=== PATIENT | female | born 1995 | race Two or more races ===

== ENCOUNTER 2025-02-06 14:34 | Emergency (ER) | payer OTHER, SELFPAY ==
[2025-02-06 15:00] VITALS: BP 115/69; PULSE 75; RESP 14; O2SAT 99
[2025-02-06 15:38] VITALS: BP 105/67; PULSE 99; RESP 14; O2SAT 99
--- NOTE | 2025-02-06 16:11 | ED.FEMALEGU ---
HPI - Female Genitourinary General Chief complaint: Vaginal Bleeding Stated complaint: vaginal bleeding Time Seen by Provider: 02/06/25 15:06 History of Present Illness HPI Narrative: 30-year-old female presenting with vaginal bleeding. Started about 2 weeks ago states that she has been bleeding heavier than normal. States that it seems to be most severe in the morning. States that by the afternoon the vaginal bleeding seems to resolve. States that she had an episode of lower abdominal pain last week but it was brief and has not reoccurred. [facility] who advised that she come to the ER for a follow-up evaluation. States that she has been feeling a bit weak in general and she is concerned it may be related to the bleeding. No syncopal episodes, chest pain, shortness of breath, leg swelling. No dysuria. She is and is sexually active only with her . Denies concerns for STIs. Related Data Allergies Allergy/AdvReac Type Severity Reaction Status Date / Time No Known Allergies Allergy Verified 02/06/25 15:07 Review of Systems Review of Systems: All systems reviewed & are unremarkable except as noted in HPI and below Exam Narrative: GENERAL: Nontoxic, no acute distress, pleasant cooperative HEAD: Normocephalic, atraumatic. EYES: PERRLA and EOMI. ENT: Mucous membranes moist. NECK: Supple. CHEST: Clear to auscultation. No respiratory distress. HEART: Regular rate and rhythm ABDOMEN: Soft, nontender, nondistended : performed with automotive software engineer RN, dark red blood in vaginal vault, no clots, cervix closed, no lesions or tenderness EXTREMITIES: Normal range of motion. SKIN: Warm, dry, no rash. NEURO: Alert and oriented x3. PSYCH: Normal mood and affect. Course Vital Signs Vital signs: Vital Signs Pulse Rate 75 02/06/25 15:00 Respiratory Rate 14 02/06/25 15:00 Blood Pressure 115/69 02/06/25 15:00 Pulse Oximetry 99 02/06/25 15:00 Oxygen Delivery Room Air 02/06/25 15:00 Pulse Rate 99 02/06/25 15:38 Respiratory Rate 14 02/06/25 15:38 Blood Pressure 105/67 02/06/25 15:38 Pulse Oximetry 99 02/06/25 15:38 Oxygen Delivery Room Air 02/06/25 15:00 MDM - Female Genitourinary MDM Narrative Medical decision making narrative: 30-year-old female presenting with abnormal vaginal bleeding. Vitals within normal limits. Exam remarkable for the above. Blood work with normal hemoglobin. Bedside is negative. Coags normal. UA without evidence of infection. Pelvic exam of dark red blood in the vaginal vault but no other acute abnormalities. No active bleeding or blood clots. Sent in for ibuprofen t.i.d. for the next several days for dysfunctional uterine bleeding. Recommend OB Gyne and PCP follow-up. Appropriate return precautions given. Patient agreeable this plan. Discharged in stable condition. Differential Diagnosis Differential diagnosis: Likely vaginitis, cystitis, dysmenorrhea and other (Abnormal uterine bleeding) Medical Records Attestation: I reviewed the patient's medical records. Lab Data Attestation: I reviewed the patient's lab results. 02/06/25 16:35 Labs: Lab Results 02/06/25 02/06/25 Range/Units 16:30 16:35 WBC 6.7 (4.5-10.0) K/mm3 RBC 4.06 L (4.2-5.4) M/mm3 Hgb 12.4 (12.0-15.0) g/dL Hct 37.9 (37.0-47.0) % MCV 93.3 (80-100) fl MCH 30.5 (26-34) pg MCHC 32.7 (32-36) g/dl RDW 12.1 (11.5-14.5) % Plt Count 241 (150-375) k/mm3 MPV 11.8 H (7.4-10.4) fl Immature Gran % (Auto) 0.3 (0-0.5) % Neut % (Auto) 51.2 (45.5-73.1) % Lymph % (Auto) 36.3 (18.3-44.2) % [place] % (Auto) 9.4 H (2.6-8.5) % Eos % (Auto) 2.2 (0-4.4) % Baso % (Auto) 0.6 (0.2-1.2) % Lymph # (Auto) 2.44 (0.9-3.2) K/mm3 [place] # (Auto) 0.6 (0.1-0.6) K/mm3 Eos # (Auto) 0.2 (0-0.3) K/mm3 Baso # (Auto) 0.0 (0.0-0.1) K/mm3 Abs Immat Gran (auto) 0.02 (0.00-0.031) K/mm3 Absolute Neuts (auto) 3.4 (1.3-6.7) K/mm3 Absolute Nucleated RBC 0.000 (0.0-0.012) K/mm3 Nucleated RBC % 0.0 (0.0-0.2) % PT 13.0 (11.1-14.7) Seconds INR 1.0 APTT 26.6 (22.3-36.8) Seconds Urine Color Yellow (Yellow) Urine Appearance Clear (Clear) Urine pH 7.0 (5.0-9.0) Ur Specific [place] 1.014 (1.001-1.035) Urine Protein Negative (Negative) mg/dL Urine Glucose (UA) Negative (Negative) mg/dL Urine Ketones Negative (Negative) mg/dL Ur Blood (Man) 1+ H (Negative) Urine Nitrate Negative (Negative) Urine Bilirubin Negative (Negative) Urine Urobilinogen 0.2 (<2.0) mg/dL Leukocyte Esterase Rfl Negative (Negative) ANN[place]ARIE/UL Urine RBC 0-2 (0-2) /hpf Urine WBC 0-5 (0-3) /hpf Ur Squamous Epith Cells None seen (Few) /hpf Urine Bacteria None seen /hpf Urine Casts 0-2 POC Urine HCG, Qual Negative (Negative) Critical Care Time Critical Care Time Critical Care Time: No Discharge Plan Discharge Clinical Impression: Dysfunctional uterine bleeding Patient Disposition: Home Condition: Stable Instructions: Antibiotic Form, Abnormal (Dysfunctional) Uterine Bleeding (ED) Additional Instructions: Your blood work today is reassuring. Your blood levels are normal. Please take the ibuprofen as prescribed for the next 3 days to help with the bleeding. Follow-up closely with OB Gyne and primary care. If the bleeding worsens and you are using more than 1 tampon/pad per hour, please return to the ER. If your symptoms worsen or other concerning symptoms arise, please return to the ER. Patient Language: Citizen Of [place] Prescriptions: New ibuprofen 600 mg tablet 600 mg PO TID 3 Days Qty: 9 0RF Follow-up/Referrals: Sara Greene MD [Physician] - Bryan Davis MD [Physician] -
[2025-02-06 17:29] LABS: Partial Thromboplastin Time 26.6 Seconds (22.3-36.8)
[2025-02-06 17:37] LABS: Basophils Percent Auto 0.6 % (0.2-1.2); Eosinophils Absolute Auto 0.2 K/mm3 (0-0.3); Eosinophils Percent Auto 2.2 % (0-4.4); Hematocrit 37.9 % (37.0-47.0); Hemoglobin 12.4 g/dL (12.0-15.0); Immature Granulocyte Absolute 0.02 K/mm3 (0.00-0.031); Immature Granulocyte Percent A 0.3 % (0-0.5); Lymphocytes Absolute Auto 2.44 K/mm3 (0.9-3.2); Lymphocytes Percent Auto 36.3 % (18.3-44.2); Mean Corpuscular HGB Conc 32.7 g/dl (32-36); Mean Corpuscular Hemoglobin 30.5 pg (26-34); Mean Corpuscular Volume 93.3 fl (80-100); Mean Platelet Volume 11.8 fl (7.4-10.4); Monocytes Absolute Auto 0.6 K/mm3 (0.1-0.6); Monocytes Percent Auto 9.4 % (2.6-8.5); Neutrophils Absolute Auto 3.4 K/mm3 (1.3-6.7); Neutrophils Percent Auto 51.2 % (45.5-73.1); Platelet Count Result 241 k/mm3 (150-375); Red Blood Count 4.06 M/mm3 (4.2-5.4); Red Cell Distribution Width 12.1 % (11.5-14.5); White Blood Count 6.7 K/mm3 (4.5-10.0)
[2025-02-06 17:51] LABS: BEDSIDEPREGUCG Negative (Negative)
[2025-02-06 18:08] LABS: Bacteria Urine None Seen /hpf; Non Pathogenic Casts 0-2; RBC Urine 0-2 /hpf (0-2); Squamous Epithelial Cell Urine None Seen /hpf (Few); WBC Urine 0-5 /hpf (0-3)
[2025-02-06 18:20] VITALS: BP 110/72; PULSE 62; RESP 14; O2SAT 100
[2025-02-06 18:24] LABS: Add Urine Microscopic? YES; Appearance Urine Clear (Clear); Bilirubin Urine Negative (Negative); Blood Urine 1+ (Negative); Color Urine Yellow (Yellow); Glucose Urine UA Negative (Negative); Ketones Urine Negative (Negative); Leukocyte Esterase Ur Negative LEU/UL (Negative); Nitrate Urine Negative (Negative); Protein Urine Negative (Negative); Specific Grav Ur 1.014 (1.001-1.035); Urobilinogen Urine 0.2 mg/dL (<2.0)
== END 2025-02-06 18:36 | disposition home or self-care (01) ==
PROVIDERS: Emergency Provider Emergency Medicine
DX: N93.8 Other specified abnormal uterine and vaginal bleeding (principal)
CPT/HCPCS: 36415; 81001; 81025; 85025; 85610; 85730; 99284